=== PATIENT | male | born 1960 | race African-American/Black ===

== ENCOUNTER 2024-02-27 08:02 | Emergency (ER) | payer MEDICAID ==
[~2024-02-27] VITALS: Ht 172.7 cm; Wt 85.5 kg
[2024-02-27 08:09] VITALS: TEMP 98.5
[2024-02-27 08:52] LABS: BASOPHILS % (AUTO) 0.5 % (0.0-2.0); EOSINOPHILS % (AUTO) 0.7 % (1.0-6.0); HEMATOCRIT 47.9 % (41-53); HEMOGLOBIN 15.8 g/dL (13.5-17.5); LYMPHOCYTES # (AUTO) 1.6 K/uL (1.0-4.8); LYMPHOCYTES % (AUTO) 29.3 % (22.0-44.0); MEAN CORPUSCULAR HEMOGLOBIN 30.1 pg (26.0-34.0); MEAN CORPUSCULAR VOLUME 91 fL (80-100); MONOCYTES # (AUTO) 0.4 K/uL (0.1-1.0); MONOCYTES % (AUTO) 7.7 % (2.0-9.0); NEUTROPHILS # (AUTO) 3.3 K/uL (1.8-7.7); NEUTROPHILS % (AUTO) 61.8 % (40.0-70.0); PLATELET COUNT (AUTO) 223 K/uL (150-450); RED BLOOD CELL COUNT(AUTO) 5.24 MIL/uL (4.50-5.90); RED CELL DISTRIBUTION WIDTH 13.9 % (11.5-14.5); WHITE BLOOD COUNT (AUTO) 5.4 K/uL (4.5-11.0)
[2024-02-27 08:54] LABS: ANION GAP 7 mmol/L (8-16); CALCIUM, TOTAL 8.7 mg/dL (8.8-10.5); CARBON DIOXIDE 30 mmol/L (22-29); CHLORIDE 102 mmol/L (98-107); CREATININE 1.35 mg/dL (0.60-1.30); GLOMERULAR FILTR. RATE CALC > 60 mL/min (>60); GLUCOSE,RANDOM 111 mg/dL (70-110); POTASSIUM 4.9 mmol/L (3.5-5.1); SODIUM SERUM 139 mmol/L (136-145); UREA NITROGEN, BLOOD 21 mg/dL (7-18)
[2024-02-27 09:04] LABS: TROPONIN I-HIGH SENSITIVITY 35 ng/L (<76)
[2024-02-27] MEDS ORDERED: PANT-31 PO (09:17)
[2024-02-27 09:44] VITALS: BP 128/79; PULSE 82; RESP 16
== END 2024-02-27 09:55 | disposition home or self-care (01) ==
LOC: EMS 08:07
DX: R07.89 Other chest pain (principal); Z88.8 Allergy status to other drugs, medicaments and biological substances
CPT/HCPCS: 71045; 80048; 84484; 85025; 93005; 99285; 36415-L1; 36415-TC

== ENCOUNTER 2025-07-25 11:29 | Emergency (ER) | payer MEDICARE, OTHER ==
[~2025-07-25] VITALS: Ht 177.8 cm; Wt 82.0 kg
[~2025-07-25 11:29] MED LIST: ASPI-1450 PO; ATOR40TA71 PO; LOSA-382 PO; METO25XL PO; TAMS0.4C94 PO
[2025-07-25] MEDS: LORazepam 2 MG/ML VIAL IM ONE (11:42)
[2025-07-25 12:18] LABS: COVID AG,FIA SOURCE NASAL SWAB
[2025-07-25 12:45] LABS: SARS-COV2 (COVID) ANTIGEN,FIA Positive (Negative)
[2025-07-25 15:00] VITALS: BP 134/77; PULSE 84; RESP 18; TEMP 98.4; O2SAT 99
== END 2025-07-25 15:37 | disposition home or self-care (01) ==
LOC: EMS 11:29
DX: U07.1 COVID-19 (principal); F15.10 Other stimulant abuse, uncomplicated; R45.1 Restlessness and agitation; R00.0 Tachycardia, unspecified; Z78.1 Physical restraint status; Z79.82 Long term (current) use of aspirin; Z79.899 Other long term (current) drug therapy; Z88.1 Allergy status to other antibiotic agents
CPT/HCPCS: 96372; 99285; Z7502